=== PATIENT | male | born 2000 | race Two or more races ===

== ENCOUNTER 2024-12-23 12:07 | Emergency (ER) | payer OTHER, SELFPAY ==
[2024-12-23 12:11] VITALS: BP 145/84; PULSE 90; TEMP 36.7; O2SAT 100
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
== END 2024-12-23 13:56 | disposition home or self-care (01) ==
PROVIDERS: Emergency Provider Student in an Organized Health Care Education/Training Program; Family Provider Family Medicine; PCP Nurse Practitioner
DX: S63.602A Unspecified sprain of left thumb, initial encounter (principal); S00.81XA Abrasion of other part of head, initial encounter; V48.0XXA Car driver injured in noncollision transport accident in nontraffic accident, initial encounter; W22.11XA Striking against or struck by driver side automobile airbag, initial encounter; Y92.410 Unspecified street and highway as the place of occurrence of the external cause
CPT/HCPCS: 73130; 99283